=== PATIENT | male | born 1995 | race Asian ===

== ENCOUNTER 2018-12-22 07:57 | Day surgery (SDC) | payer OTHER, SELFPAY ==
--- NOTE | 2018-12-22 | PATH_ITS ---
[facility] Accession Number: [id number] . 01 Material submitted: . rectum - RECTAL POLYP . 01 Clinical history: . COLONOSCOPY W/POSS POLYPECTOMY . 02 Diagnosis: Rectum, Polyp: Hyperplastic polyp. MRV/12/23/2018 . 02 Electronically signed: . Stiven Arrieta MD, PhD, Pathologist NPI- [id number] . 01 Gross description: . RECTAL POLYP: Received in formalin are 3 fragment(s) of chester, soft tissue measuring 0.1 x 0.1 x 0.1 cm to 0.3 x 0.2 x 0.2 cm which is entirely submitted and submitted entirely in 1 cassette(s) /DMC /DMC . 02 Pathologist provided ICD-10: K62.1 . 02 CPT . 005654 Performed at: 01 [facility] [address] [id number] MD Jagdeep Acosta MD Phone: [phone] Performed at: 02 [facility] [address] [place] [id number] MD Elvie Lindo MD Phone: [phone]
[2018-12-22 08:42] VITALS: BMI 24.0
[2018-12-22 08:47] VITALS: BP 123/78; PULSE 94; RESP 15; TEMP 37.3; O2SAT 100
[2018-12-22] MEDS: SODIUM CHLORIDE 0.9% 1,000 ML 200 ML IV (08:52)
--- NOTE | 2018-12-22 09:50 | PM.HP.1 ---
History of Present Illness Date Patient Seen: 12/22/18 Time Patient Seen: 09:50 Chief complaint: [id number] COLONOSCOPY W/POSS POLYPECTOMY Narrative: Patient seen and examined unchanged since recent clinic visit Patient History Medical History (Updated 12/14/18 @ 18:01 by Kvng Castro MD) GERD (gastroesophageal reflux disease) (Acute) Social History household members: friend(s) Family & Social History Social History: household members friend(s) Meds Home Medications Medication Instructions Recorded Confirmed Type psyllium husk [Metamucil] 0.4 g PO DAILY 12/22/18 12/22/18 History Allergies Allergy/AdvReac Type Severity Reaction Status Date / Time Penicillins Allergy Intermediate Rash Verified 12/22/18 08:40 Exam Vital Signs (past 8 hours): - 12/22/18 08:47 Temperature 99.2 F Pulse Rate 94 H Respiratory Rate 15 Blood Pressure 123/78 Pulse Oximetry 100 Oxygen Delivery Method Room Air
--- NOTE | 2018-12-22 10:46 | PM.OP.ENDO ---
Operative Date/Time/Diagnoses Date of procedure: 12/22/18 Time of procedure: 10:47 Pre-op diagnosis: Rectal bleeding and change in stool caliber Post-op diagnosis: same Procedure & Clinicians Study performed: Diagnostic colonoscopy-complete Cold biopsy forcep polypectomy x1 -rectum Same procedure as scheduled: Yes Indications: 23-year-old man presents to clinic with rectal bleeding and change in stool caliber, becoming smaller. No prior history of colonoscopy Surgeon: Kvng Castro Procedure Notes SCOAP/Timeout: Completed Procedure in detail: Patient was brought to the endoscopy suite, time-out was completed. He was sedated over the course the entire procedure with 9 mg of midazolam and 175 micro g of fentanyl. A digital rectal exam was performed there were no lesions, his prostate was small and soft. 160 cm colonoscope was advanced through the folds of the rectum and colon to eventually reach the cecum. The cecum was identified via the ileocecal valve, and appendiceal orifice as well as a gross foot. He was noted to have several small diverticula within the right colon and cecum. Slowly withdrawing the colonoscope the mucosal surfaces were carefully inspected. No lesions were identified until a small sessile polyp was seen at the rectum. This was removed with a Jumbo biopsy forcep. And sent to pathology. Upon withdrawing the scope prominent hemorrhoids were identified within the anal canal. This appeared to involve all 3 columns. The scope was retroflexed without additional lesions. Prep was adequate Scope withdrawal time: 23 Sedation minutes: 31 Specimen(s): other (Rectal polyp) Complications: none Impression: 1. Rectal polyp 2. Enlarged hemorrhoids all 3 common Recommendations: Colonscopy in 5 years Plan for aftercare: PACU then home Follow up: weeks (Follow-up in clinic with mt) Disposition: PACU
[2018-12-22] MEDS: MIDAZOLAM 5 MG/5 ML VIAL IV (10:49)
[2018-12-22] MEDS: fentaNYL 250 MCG/5 ML INJ IV (10:49)
[2018-12-22 10:55] VITALS: BP 111/69; PULSE 88; RESP 17; TEMP 37.2; O2SAT 100
[2018-12-22 11:11] VITALS: BP 117/68; PULSE 88; RESP 16; O2SAT 100
[2018-12-22 11:31] VITALS: BP 122/71; PULSE 88; RESP 16; O2SAT 100
== END 2018-12-22 11:56 | disposition home or self-care (01) ==
PROVIDERS: PCP General Practice; Visit Provider Surgery
PROC: 0DJD8ZZ Inspection of Lower Intestinal Tract, Via Natural or Artificial Opening Endoscopic (ICD-10-PCS; CPT 45378; principal; 2018-12-22 09:45)
DX: K62.5 Hemorrhage of anus and rectum (principal); K62.1 Rectal polyp; K57.30 Diverticulosis of large intestine without perforation or abscess without bleeding; R19.4 Change in bowel habit; K64.8 Other hemorrhoids
CPT/HCPCS: 45380; 88305; 99152; 99153; J2250; J3010